=== PATIENT | female | born 1960 | race Caucasian/White ===

== ENCOUNTER → 2017-02-17 | Outpatient (CLI) | payer OTHER ==
[~2017-02-17] MED LIST: ANAS1TAB19 PO; ASPI81TA25 PO; CALC-393 PO; CETI10TA10 PO; CHOL20005 PO; CLON0.5T3 PO; CYCL10TA6 PO; GLUCTAB7 PO; LISI5TAB PO; MULT-506 PO; PHEN95TA14 PO; SERT-234 PO
--- NOTE | 2017-02-17 14:43 | MAMMOGRAPHY REPORT ---
BILATERAL DIGITAL DIAGNOSTIC MAMMOGRAM TOMOSYNTHESIS WITH CAD: 02/17/2017 CLINICAL HISTORY: History of left breast cancer status post lumpectomy March 2015 as well as radiation therapy. She reports no palpable lumps or other current complaints. TECHNIQUE: Breast tomosynthesis in addition to standard 2D mammography was performed. Current study was also evaluated with a Computer Aided Detection (CAD) system. Bilateral CC and MLO 2-D and tomosy nthesis images and spot magnification left CC and ML views were obtained. COMPARISON: Comparison is made to exams dated: 08/31/2016 ultrasound, 08/31/2016 mammogram, 6 ultrasound, 03/01/2016 mammogram, 08/26/2015 mammogram, and 03/28/2015 localization - [facility]. BREAST COMPOSITION: There are scattered areas of fibroglandular density in both breasts. FINDINGS: There has been no significant interval change compared to prior exams. There are no suspi cious masses, calcifications, or areas of nonsurgical architectural distortion noted within either br east. There are stable post surgical changes in the left 6:00 breast from prior lumpectomy, includin g stable architectural distortion and density at the lumpectomy bed. A linear scar marker denotes a scar on the left 6:00 breast. Spot magnification views of the lumpectomy bed demonstrate a few scatt ered benign-appearing calcifications at and lateral to the lumpectomy bed, which are stable compared to multiple prior exams including the January 2015 exam and considered benign given long-term stability. No suspicious or new clusters of microcalcifications are noted at the lumpectomy bed. Other scatter ed bilateral benign-appearing calcifications are not significantly changed. IMPRESSION: ACR BI-RADS CATEGORY 2: BENIGN Stable posttreatment changes in the left breast, without mammographic evidence of malignancy in eithe r breast.. A 1 year screening mammogram is recommended. The patient has been verbally notified of th e results. Approximately 10% of breast cancers are not detected with mammography. A negative mammographic report should not delay biopsy if a clinically suggestive mass is present. Preeti Junior M.D. /:02/17/2017 09:54:44 Wharf Laborer: Adrianne ESPAÑA(R)(M), [facility] letter sent: Normal 1/2 BI-RADS Code: ACR BI-RADS Category 2: Benign
== END | disposition home or self-care (01) ==
LOC: C.MAMM 09:15
PROVIDERS: ATTEND Physician Assistant Medical
DX: Z08 Encounter for follow-up examination after completed treatment for malignant neoplasm (principal); Z85.3 Personal history of malignant neoplasm of breast

== ENCOUNTER → 2017-06-29 | Outpatient (CLI) | payer OTHER ==
[2017-06-29 13:14] VITALS: BP 123/79; PULSE 92; TEMP 37.1; O2SAT 97
--- NOTE | 2017-06-29 14:13 | Radiation Oncology Follow-Up ---
Radiation Oncology Follow-Up Date of Visit Jun 29, 2017. Reason For Visit Annual follow up Radiation Completion Date APBI 05/27/15 Diagnosis (1) Breast cancer in situ Status: Resolved Onset Date: 02/24/2015 Stage: 0 Permanent Comment: Left breast, DCIS, grade 3 with comedonecrosis, ER/SD positive, stage 0 Biopsy - 02/24/2015 Lumpectomy - 03/28/2015 Radiation therapy - completed 05/27/2015 - received 3,850 cGy utilizing accelerated partial breast therapy. Last Edited By: Ethan Guerrero on Jun 17, 2015 08:07 History of Present Illness Ms. Wilkes presented with an abnormal mammogram on 01/09/2015 which revealed scattered coarse calcifications in a new cluster of microcalcifications in the middle one third of the left breast at the 12 o'clock position. The patient and subsequently underwent a diagnostic left mammogram on 01/28/2015 which revealed a discrete 2 mm cluster of microcalcifications in the right middle one third of the left breast and a biopsy was recommended. Biopsy was completed on 02/24/2015 revealed ductal carcinoma in situ which was high-grade with comedonecrosis and was estrogen receptor and progesterone receptor positive. The patient was evaluated by Dr. Mcgovern in the discussed a lumpectomy followed by adjuvant radiation therapy. The patient underwent a lumpectomy on 03/28/2015 which only revealed fibrocystic changes in no area of residual carcinoma in situ. We are now seeing her in consultation for discussion of adjuvant radiation therapy. Currently the patient is doing well overall. She has no complaints. She states she has healed up well from surgery. She did let us know that she does plan to go on a trip in July and is hoping that will be possible even if she takes radiation therapy. She returned and completed CT simulation. She was found to be a candidate for accelerated partial breast treatment. Interim History She's been doing well over this past year. She is noted no changes to her breast. She's noticed no masses or tenderness and no change in the axilla. She 's had no swelling of her arm. She is up-to-date on mammography. She is on Arimidex. She has mild hot flashes in the morning. He is then resolved and are not an issue throughout the rest of the day. Allergies Coded Allergies: Cat Dander (Verified Allergy, Unknown, ITCGY NOSE RUNNY EYES, 05/18/15) POLLEN (Verified Allergy, Unknown, ITCHY EYES RUNNY NOSE, 05/18/15) Home Medications Scheduled Anastrozole (Arimidex), 1 TAB PO DAILY Aspirin (Aspir-Low), 1 TAB PO QAM Calcium Carbonate (Calcium), 600 MG PO QAM Cetirizine Hcl (Zyrtec), 10 MG PO QAM Cholecalciferol (Vitamin D3), 2,000 UNITS PO QAM Tpichdbeqll-Mgvbbolpoho-Rhw C- (Glucosamine Chondroitin), 1 TAB PO QAM Lisinopril (Prinivil), 5 MG PO QAM Multivitamin (Multivitamin), 1 TAB PO QAM Sertraline (Zoloft), 150 MG PO QPM Scheduled PRN Clonazepam (Klonopin), 0.5-1 TAB PO BID PRN for PRN Cyclobenzaprine Hcl (Flexeril), 10 MG PO HS PRN for PRN Phenazopyridine Hcl (Azo Tabs), 1-2 TABS PO Q6 PRN for URINARY PAIN Review of Systems Gastrointestinal: Symptoms: WNL Oral: Symptoms: No Problems Respiratory: Symptoms: WNL Urinary: Symptoms: WNL Skin: Symptoms: No Problems Breast: Right Upper Arm Measurement: 38.0 Right Mid Arm Measurement: 27.3 Right Wrist Measurement: 17.3 Left Upper Arm Measurement: 37.8 Left Mid Arm Measurement: 27.3 Left Wrist Measurement: 17.0 Arm Dominence: Right Physical Exam Vital Signs Date Time Temp Pulse Resp B/P (MAP) Pulse Ox O2 Delivery O2 Flow Rate FiO2 06/29/17 13:14 37.1 92 12 123/79 97 Fatigue: None General Appearance: no apparent distress Eyes: normal inspection, EOMI ENT: normal ENT inspection, hearing grossly normal Neck: no adenopathy, thyroid normal Respiratory/Chest: lungs clear, no respiratory distress, no accessory muscle use Breast: Breast examination reveals a well-healed incision of the left breast. There are no masses or tenderness no axillary adenopathy. There are mild fibrous changes below the incision line. Using the [place] score cosmesis she has a good outcome. She has no skin retractions or nipple changes. The right breast showed no masses or tenderness no axillary adenopathy. Cardiovascular: regular rate, rhythm, no gallop, no murmur Extremities: no pedal edema Neurologic/Psychiatric: no motor/sensory deficits, alert, normal mood/affect Skin: warm/dry Additional Studies Patient: TERELL WILKES Rec: [id number] Address[address]: [address] [facility] Address2: Acct ID: [id number] Date: 1960 Sex: F Ref Phy: Pedor Guerrero M.D. Att Phy: Yary Goncalves PA-C Kaela Phy: Raheel Rey M.D. Inter Phy: Preeti Junior MD [facility]: [place] [id number] SC: [id number] Report #: [id number] Second Mate: HANSEL Diagnosis: 6 MO F/U Service Date: 02/17/17 MNE: [id number] Ordering Dr: Yary Goncalves PA-C CC: Yary Goncalves PA-C CONF: DICTATED BY: Preeti Junior MD MAMMOGRAPHY REPORT BILATERAL DIGITAL DIAGNOSTIC MAMMOGRAM TOMOSYNTHESIS WITH CAD: 02/17/2017 CLINICAL HISTORY: History of left breast cancer status post lumpectomy March 2015 as well as radiation therapy. She reports no palpable lumps or other current complaints. TECHNIQUE: Breast tomosynthesis in addition to standard 2D mammography was performed. Current study was also evaluated with a Computer Aided Detection (CAD ) system. Bilateral CC and MLO 2-D and tomosynthesis images and spot magnification left CC and ML views were obtained. COMPARISON: Comparison is made to exams dated: 08/31/2016 ultrasound, 2015 mammogram, 03/01/2016 ultrasound, 03/01/2016 mammogram, 08/26/2015 mammogram , and 03/28/2015 [facility]. BREAST COMPOSITION: There are scattered areas of fibroglandular density in both breasts. FINDINGS: There has been no significant interval change compared to prior exams. There are no suspicious masses, calcifications, or areas of nonsurgical architectural distortion noted within either breast. There are stable post surgical changes in the left 6:00 breast from prior lumpectomy, including stable architectural distortion and density at the lumpectomy bed. A linear scar marker denotes a scar on the left 6:00 breast. Spot magnification views of the lumpectomy bed demonstrate a few scattered benign-appearing calcifications at and lateral to the lumpectomy bed, which are stable compared to multiple prior exams including the January 2015 exam and considered benign given long-term stability. No suspicious or new clusters of microcalcifications are noted at the lumpectomy bed. Other scattered bilateral benign-appearing calcifications are not significantly changed. IMPRESSION: ACR BI-RADS CATEGORY 2: BENIGN Stable posttreatment changes in the left breast, without mammographic evidence of malignancy in either breast.. A 1 year screening mammogram is recommended. The patient has been verbally notified of the results. Approximately 10% of breast cancers are not detected with mammography. A negative mammographic report should not delay biopsy if a clinically suggestive mass is present. Preeti Junior M.D. ah/:02/17/2017 09:54:44 Mold Mover: Adrianne SMITH)(Ramón), [facility] letter sent: Normal 1/2 BI-RADS Code: ACR BI-RADS Category 2: Benign Dictated by: Preeti Junior MD Signed by: Preeti Junior MD Assessment & Plan Plan: She was seen and examined by Dr. Guerrero. Continue annual mammography. Continue on Arimidex. She continues follow-up with her breast surgeon and medical oncologist. We asked her to return to our office in 1 year. She may cause she has any questions or concerns in the interim. Assessment & Plan (Attending) ADDENDUM: I agree with note created by Yary Goncalves PA-C. I reviewed the patient's chart and information with her. I have examined and evaluated the patient. I reviewed relevant clinical information and answered the patient's and /or family's questions. WATER PLANT PUMP OPERATOR Total Time In Follow-Up I spent 20 minutes speaking to the patient performing examination. I spent 15 minutes reviewing information and completing this note. Total Time (Attending) In Follow-Up I spent 15 minutes examining and counseling the patient. WATER PLANT PUMP OPERATOR Copy To Cesia Mcgovern MD; Pedro Guerrero M.D.; Raheel Rey M.D. Problem Qualifiers (1) Breast cancer in situ: Carcinoma in situ of breast type: intraductal Laterality: left Qualified Codes: D05.12 - Intraductal carcinoma in situ of left breast
== END | disposition home or self-care (01) ==
LOC: C.ONC 13:07
PROVIDERS: ATTEND Physician Assistant Medical
DX: Z08 Encounter for follow-up examination after completed treatment for malignant neoplasm (principal); Z92.3 Personal history of irradiation; Z85.3 Personal history of malignant neoplasm of breast

== ENCOUNTER → 2017-08-12 | Outpatient (CLI) | payer OTHER | END | disposition home or self-care (01) | LOC: C.PAPS 17:43 | PROVIDERS: ATTEND Obstetrics & Gynecology | DX: Z12.4 Encounter for screening for malignant neoplasm of cervix (principal) ==

== ENCOUNTER 2017-08-22 17:45 | Emergency (ER) | payer OTHER ==
[~2017-08-22] VITALS: Ht 165.1 cm; Wt 100.0 kg
[2017-08-22 17:47] VITALS: TEMP 37; Ht 165.1 cm; Wt 100.0 kg
[2017-08-22] MEDS ORDERED: AMOX500C3 PO (18:22)
--- NOTE | 2017-08-22 18:44 | EMERGENCY ROOM VISIT NOTE ---
ED Visit Note First contact with patient: 17:54 CHIEF COMPLAINT: left knee pain HISTORY OF PRESENT ILLNESS: This 56-year-old female patient presents to the emergency department in a wheelchair, approximately 6 hours after sustaining an injury to the left knee. The patient states she was carrying groceries upstairs when she got home, and when she got to the top of the stairs, her left knee gave way. She states "it flew backwards". When asked to specify, the patient states she is uncertain if the knee hyperextended or buckled. She states she just knows that the knee did not support her weight for a moment, then became painful. She does have a history of osteoarthritis in bilateral knees, but states this never happened before. When she got inside, she immediately applied ice, elevated the leg, and took 600 mg of ibuprofen. She states she is able to walk, however that significantly worsens her pain. By 4: 00, she states she was unable to bear weight on the leg due to the severe pain. She was able to ambulate around while leaning on her 's crutch, but this is difficult. The patient denies any other injuries besides their knee. The patient denies swelling or bruising. There is pain in the distal femur, medial, and lateral aspects of the knee. They rate the pain as sharp and 7/10. No numbness or tingling. No previous injuries to this knee. No ankle, foot or hip pain. REVIEW OF SYSTEMS: A 6 system review of systems was completed with positives and pertinent negatives listed in the HPI. ALLERGIES: None MEDICATIONS: Zoloft, lisinopril, Arimidex, meloxicam PMH: Ductal carcinoma, hypertension SOCIAL HISTORY: The patient lives locally with family. She denies drug, alcohol , tobacco use. PHYSICAL EXAM: Vital Signs: Reviewed Nurse's notes, vital signs stable. GENERAL: This is a 56-year-old white female, no acute distress, but appears in pain, well-developed, well-nourished. MENTAL STATUS: Alert, oriented to person place and time, and cooperative. LUNGS: CTA bilaterally. No wheezes, rhonchi, or rales. No dullness to percussion. MUSCULOSKELETAL: The left knee is mildly swollen. There is no ecchymosis. There is no joint effusion present. The patient is tender superior to the patella, and in the medial and lateral aspects of the knee. There is no joint line tenderness. The patella does appropriately subluxate. Range of motion is full, and nontender. Strength of the quads and hamstrings is 5/5. Roberto's is negative. Homero's and Anterior Drawer tests are negative. There is discomfort , but no laxity with varus and valgus stressing. The foot and toes are warm and well-perfused. Dorsalis pedis pulse 2+. Sensation to pain and light touch is intact. Capillary refill less than 2 seconds. RADIOLOGY: L KNEE 3 VIEWS CLINICAL HISTORY: Left knee pain following injury. COMPARISON: None FINDINGS: Alignment of the left knee is anatomic. No fracture or suspicious lesion is evident. There is a small left knee joint effusion. There is moderate narrowing of the medial patellofemoral compartment. Moderate osteophytosis is noted. There is mild osteophytosis within the medial and lateral compartments. IMPRESSION: 1. No acute fracture. 2. Small left knee joint effusion. 3. Moderate osteoarthritis of the patellofemoral compartment with mild osteoarthritis within the medial and lateral compartments. Electronically signed by: Shorty Sanz M.D. 08/22/2017 6:48 PM Dictated Date/Time: 08/22/2017 6:46 PM EMERGENCY DEPARTMENT COURSE: I examined the patient. X-rays of the left knee were reviewed by myself and read by radiology and reveal no acute fracture. The patient was placed in a knee immobilizer under my direction and the position was satisfactory. The patient was instructed on the use of crutches. While reviewing discharge instructions, the patient states she has been feeling ill and is currently being treated for a URI with Amoxicillin. She states she was seen at urgent care for the prescription and called back today to ask for Gloria Quiroz, but was advised to just "give it time." The patient asked if I would be willing to send a prescription for her. I did listen to the patient's lungs and did not head any adventitious lung sounds. A script was sent. The patient was discharged home in good condition. I attest that I have personally reviewed the patient's current medication list. Blood Pressure Screening: Patient was found to have a slightly elevated blood pressure due to circumstances. I do not believe that the patient requires hypertension monitoring. DIFFERENTIAL DIAGNOSIS: Sprain, strain, contusion, ligament tear, meniscus tear , fracture, dislocation, malignancy, and others DIAGNOSIS: Left knee sprain, cough Problem List Medical Problems: (1) Breast cancer in situ Permanent Comment: Left breast, DCIS, grade 3 with comedonecrosis, ER/RI positive, stage 0 Biopsy - 02/24/2015 Lumpectomy - 03/28/2015 Radiation therapy - completed 05/27/2015 - received 3,850 cGy utilizing accelerated partial breast therapy. Status: Resolved Current/Historical Medications Scheduled Amoxicillin (Amoxil), 1 CAP PO BID Anastrozole (Arimidex), 1 TAB PO DAILY Aspirin (Aspir-Low), 1 TAB PO QAM Calcium Carbonate (Calcium), 600 MG PO QAM Cetirizine Hcl (Zyrtec), 10 MG PO QAM Cholecalciferol (Vitamin D3), 2,000 UNITS PO QAM Oewacpxvnpp-Jxhsvamciak-Jlm C- (Glucosamine Chondroitin), 1 TAB PO QAM Lisinopril (Prinivil), 5 MG PO PM Multivitamin (Multivitamin), 1 TAB PO QAM Sertraline (Zoloft), 150 MG PO QPM Scheduled PRN Benzonatate (Tessalon Perles), 200 MG PO TID PRN for Cough Clonazepam (Klonopin), 0.5-1 TAB PO BID PRN for PRN Cyclobenzaprine Hcl (Flexeril), 10 MG PO HS PRN for PRN Allergies Coded Allergies: Cat Dander (Verified Allergy, Unknown, ITCGY NOSE RUNNY EYES, 08/22/17) POLLEN (Verified Allergy, Unknown, ITCHY EYES RUNNY NOSE, 08/22/17) Vital Signs Date Time Temp Pulse Resp B/P (MAP) Pulse Ox O2 Delivery O2 Flow Rate FiO2 08/22/17 17:47 37.0 72 17 162/97 97 Room Air Departure Information Impression Primary Impression: Sprain of left knee Additional Impression: Cough Dispostion Home / Self-Care Condition GOOD Prescriptions Benzonatate (Tessalon Perles) 200 Mg Cap 200 MG PO TID Y for Cough, #30 CAP Prov: Sonja Rangel, LORENZO 08/22/17 Referrals Raheel Rey M.D. (PCP) Varghese Leavitt D.O. Patient Instructions ED Immobilizer Knee, My [facility] Additional Instructions You have been treated in the Emergency Department for Knee Pain and cough. You were given a prescription for Tessalon Perles. Use as directed for cough. For pain control, you can use the following lqnk-fba-ukzlbfu medicines (if >12 yo): Ibuprofen(Motrin, Advil) may be used for fever or pain. Use 600mg every six hours as needed. Take with food. Avoid using more than 2400mg in a 24 hour period. Do not use 2400mg per day for more than three consecutive days without physician direction. Prolonged inappropriate use can lead to stomach upset or ulcers. (AND/OR) Acetaminophen(Tylenol) may be used for fever or pain. Use 1000mg every six hours as needed. Avoid using more than 3000mg in a 24 hour period. If this is a recent injury (<24 hrs), ice can be applied to the area of pain for the first 3 days to help decrease pain and inflammation. Ice massages can be performed by freezing water in a paper cup, peeling back the cup to expose the ice and then massaging over the affected area. Contact your orthopedic surgeon if no improvement in 2-3 days. Wear the knee immobilizer when ambulating and out of bed until you are feeling better or are instructed by orthopedics not to use it. Use the crutches you have been provided to keep ALL weight off of the knee until weight bearing is tolerable. Return to the Emergency Department if your current symptoms worsen despite treatment course outlined above. Problem Qualifiers Primary Impression: Sprain of left knee Encounter type: initial encounter Involved ligament of knee: unspecified ligament Qualified Codes: S83.92XA - Sprain of unspecified site of left knee, initial encounter
--- NOTE | 2017-08-22 18:49 | DIAGNOSTIC IMAGING REPORT ---
L KNEE 3 VIEWS CLINICAL HISTORY: Left knee pain following injury. COMPARISON: None FINDINGS: Alignment of the left knee is anatomic. No fracture or suspicious lesion is evident. There is a small left knee joint effusion. There is moderate narrowing of the medial patellofemoral compartment. Moderate osteophytosis is noted. There is mild osteophytosis within the medial and lateral compartments. IMPRESSION: 1. No acute fracture. 2. Small left knee joint effusion. 3. Moderate osteoarthritis of the patellofemoral compartment with mild osteoarthritis within the medial and lateral compartments. Electronically signed by: Shorty Sanz M.D. 08/22/2017 6:48 PM Dictated Date/Time: 08/22/2017 6:46 PM
[2017-08-22] MEDS ORDERED: BENZ1CAP90 PO (19:03)
[2017-08-22 19:21] VITALS: BP 124/76; PULSE 88; O2SAT 98
== END 2017-08-22 19:22 | disposition home or self-care (01) ==
LOC: C.EDB 17:46 → C.EDD 19:22
DX: S83.92XA Sprain of unspecified site of left knee, initial encounter (principal); X58.XXXA Exposure to other specified factors, initial encounter; Y92.019 Unspecified place in single-family (private) house as the place of occurrence of the external cause; M25.462 Effusion, left knee; I10 Essential (primary) hypertension; Z85.3 Personal history of malignant neoplasm of breast; Z79.82 Long term (current) use of aspirin; Z79.899 Other long term (current) drug therapy; Z91.09 Other allergy status, other than to drugs and biological substances

== ENCOUNTER 2018-12-05 06:15 | Inpatient (IN) ==
--- NOTE | 2018-11-15 16:34 | PAT Medication Instructions ---
Medication Instructions Date of Service November 15, 2018 Home Medications Vitamin D 1 tab PO DAILY anastrozole 1 mg PO DAILY aspirin [Aspir-Low] 81 mg PO DAILY calcium carbonate [Calcium 600] 600 mg PO DAILY cetirizine [Zyrtec] 10 mg PO DAILY clonazepam 0.5 mg PO BID PRN cyclobenzaprine 10 mg PO TID PRN diclofenac sodium 75 mg PO BID glucosamine HCl 1,500 mg PO DAILY lisinopril 5 mg PO DAILY multivitamin 1 tab PO DAILY ranitidine HCl [Zantac] 150 mg PO DAILY PRN sertraline 100 mg PO DAILY vitamin E 400 unit PO DAILY ASK your surgeon for instructions diclofenac sodium 75 mg PO BID ASK your prescriber and surgeon anastrozole 1 mg PO DAILY STOP taking 2 weeks before surgery (or as soon as possible if surgery is within 2 weeks) glucosamine HCl 1,500 mg PO DAILY vitamin E 400 unit PO DAILY DO NOT take the morning of surgery Vitamin D 1 tab PO DAILY calcium carbonate [Calcium 600] 600 mg PO DAILY cetirizine [Zyrtec] 10 mg PO DAILY cyclobenzaprine 10 mg PO TID PRN lisinopril 5 mg PO DAILY multivitamin 1 tab PO DAILY ranitidine HCl [Zantac] 150 mg PO DAILY PRN Take morning of surgery With a small sip of water, OTHERWISE NOTHING TO EAT OR DRINK AFTER MIDNIGHT: aspirin [Aspir-Low] 81 mg PO DAILY clonazepam 0.5 mg PO BID PRN (if needed) sertraline 100 mg PO DAILY Other Notes If you have any questions please call us at [phone] or [phone] or [phone] or [phone]
--- NOTE | 2018-11-16 14:30 | Anesthesiology Consultation ---
Date of Service November 16, 2018 Assessment & Plan (1) Encounter for pre-operative examination: - Okay to continue ASA perioperatively per surgeon Chart Review Chart Review: Acceptable Risk for Surgery and Patient seen in Pre Admission Testing Teaching & Discussion Pre-Anesthesia Teaching/Discussion Notes: Instructed NPO after midnight before surgery,except medications with 15 cc of water. Medication instructions provided according to the PAT guidelines. History Surgery Operation Date: 12/05/18 10:40 Proposed Procedures p Right Total Knee Arthroplasty - Tavo Perales MD Height/Weight Height: 5 ft 5 in Weight: 99.5 kg Allergies Allergy/AdvReac Type Severity Reaction Status Date / Time cat dander Allergy Mild ITCHY NOSE Verified 11/10/18 13:31 RUNNY EYES pollen extracts Allergy Mild ITCHY EYES Verified 11/10/18 13:31 RUNNY NOSE No Known Drug Allergies Allergy Unknown Verified 11/16/18 14:47 Medications Home Medications Medication Instructions Recorded Confirmed Last Taken Vitamin D 1 tab PO DAILY 11/10/18 11/10/18 Unknown anastrozole 1 mg PO DAILY 11/10/18 11/10/18 Unknown aspirin [Aspir-Low] 81 mg PO DAILY 11/10/18 11/10/18 Unknown calcium carbonate [Calcium 600] 600 mg PO DAILY 11/10/18 11/10/18 Unknown cetirizine [Zyrtec] 10 mg PO DAILY 11/10/18 11/10/18 Unknown clonazepam 0.5 mg PO BID PRN 11/10/18 11/10/18 Unknown cyclobenzaprine 10 mg PO TID PRN 11/10/18 11/10/18 Unknown diclofenac sodium 75 mg PO BID 11/10/18 11/10/18 Unknown glucosamine HCl 1,500 mg PO DAILY 11/10/18 11/10/18 Unknown lisinopril 5 mg PO DAILY 11/10/18 11/10/18 Unknown multivitamin 1 tab PO DAILY 11/10/18 11/10/18 Unknown ranitidine HCl [Zantac] 150 mg PO DAILY PRN 11/10/18 11/10/18 Unknown sertraline 100 mg PO DAILY 11/10/18 11/10/18 Unknown vitamin E 400 unit PO DAILY 11/10/18 11/10/18 Unknown Past Medical History Medical History Anxiety Cancer BREAST S/P LEFT BREAST LUMPECTOMY/RADIATION Depression GERD (gastroesophageal reflux disease) CONTROLLED Hypertension Obesity Osteoarthritis Past Family History Family History Grandfather (Maternal) Family hx of colon cancer Past Surgical History Surgical History History of bilateral tubal ligation History of colonoscopy History of tooth extraction Hx of lumpectomy LEFT BREAST Past Anesthesia History No Hx of Anesthesia Complications (EXCEPT PONV) and No Family Hx of Anesthesia Complications History of PONV Yes Motion Sickness Screening History of Motion Sickness: Yes (OCCASIONAL) Social History Smoking Status: Never smoker Do You Dip or Chew Tobacco: No Hx Alcohol Use: Yes Alcohol type: wine and hard liquor alcohol intake frequency: holidays/special occasions only Hx Substance Use: No substance use type: does not use Exercise / Class Metabolic Activity II 4-5 Yardwork/Stairs/Walk up hill Review of Systems Patient denies chest pain, shortness of breath, dyspnea on exertion, cough, wheezing, palpitations. Physical Exam Vital Signs VITALS BP 143/80 P 81 TEMP 98.3 SP02 97%ra RESP 18 PHYSICAL Full neck and c-spine range of motion. Full TMJ range of motion. TMD 3 finger breaths Mallampati Score 2 Dentition: intact, crowns on molars Lungs: clear throughout to auscultation Cardiac: regular rate and rhythm, no murmurs noted Spine: kyphosis Carotid arteries: negative bruit Extremities: no edema Testing Electrocardiogram Date: 11/16/18 Findings: + NSR @ (70) Chest X-Ray Date: 11/16/18 Findings: + NAD Laboratory Results 11/16/18 14:51 11/16/18 14:51 Blood Type A Positive 11/16/18 14:51 Antibody Screen NEGATIVE 11/16/18 14:51 PT 10.1 Seconds (9.0-12.0) 11/16/18 14:51 INR 1.0 (0.9-1.1) 11/16/18 14:51 APTT 24.5 Seconds (21.0-31.0) 11/16/18 14:51
--- NOTE | 2018-11-16 15:06 | XRay Report ---
XR chest Pre-admission PA/Lat HISTORY: Preop. COMPARISON: None. FINDINGS: The lungs are clear. Cardiac silhouette is normal in size. No pleural effusions. No pneumot horax. IMPRESSION: No acute process. Electronically signed by: Ayan Min M.D. 11/16/2018 3:05 PM
[2018-11-16 15:58] LABS: Basophils # (auto) 0.01 K/uL (0-0.2); Basophils % (auto) 0.2 %; Eosinophils # (auto) 0.12 K/uL (0-0.5); Hematocrit (blood only) 41.8 % (37-47); Hemoglobin 14.1 g/dL (12.0-16.0); Immature Granulocytes # (auto) 0.01 K/uL (0.00-0.02); Immature Granulocytes % (auto) 0.2 %; Lymphocytes # (auto) 2.32 K/uL (1.2-3.4); Lymphocytes % (auto) 37.7 %; Mean Corpuscular Hgb Conc 33.7 g/dL (32-36); Mean Corpuscular Volume 92.3 fL (80-100); Mean Platelet Volume 9.1 fL (7.4-10.4); Monocytes # (auto) 0.53 K/uL (0.11-0.59); Monocytes % (auto) 8.6 %; Neutrophils # (auto) 3.16 K/uL (1.4-6.5); Neutrophils % (auto) 51.3 %; Platelet Count 196 K/uL (130-400); RDW Coefficient of Variation 12.4 % (11.5-14.5); RDW Standard Deviation 42.2 fL (36.4-46.3); Red Blood Count 4.53 M/uL (4.2-5.4); White Blood Count 6.15 K/uL (4.8-10.8)
[2018-11-16 16:11] LABS: BUN Creatinine Ratio 23.1 (10-20); Calcium 9.3 mg/dl (8.5-10.1); Creatinine Clr Calc Pharmacy 86.3 ml/min; Est GFR (African American) 90.1; Est GFR (Non-African American) 77.7
[2018-11-16 16:12] LABS: Partial Thromboplastin Ratio 0.9; Partial Thromboplastin Time 24.5 Seconds (21.0-31.0); Prothrombin Time 10.1 Seconds (9.0-12.0)
--- NOTE | 2018-11-29 12:53 | History and Physical Report ---
DATE OF ADMISSION: 12/05/2018 CHIEF COMPLAINT: Bilateral knee pain and discomfort, right side greater than left. 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 She is referred by my partner Dr. Leavitt. She has a long history of bilateral knee pain and discomfort, right side is worse than the left. She has been through extensive conservative treatment over the years, which has just become less successful over time. 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 She was asked to take some NSAIDs, and without those, she really cannot perform her job. She barely gets through. She has diffuse pain. She has nighttime pain. It is global pain in both knees. The more she walks, the more it hurts. She now would like to proceed with definitive treatment. She is hoping to do this in a staged fashion. PAST MEDICAL HISTORY: 1. Hypertension. 2. Anxiety/depression. 3. Arthritis. 4. Gastroesophageal reflux disease. 5. Obesity with a BMI of 37. PAST SURGICAL HISTORY: Previous surgeries include: 1. Tubal ligation. 2. Lumpectomy. ALLERGIES: None. CURRENT MEDICINES: 1. Lisinopril 5 mg a day. 2. Anastrozole 1 mg a day. 3. Diclofenac. 4. Sertraline 100 mg a day. 5. Clonazepam 0.5 mg. 6. Cyclobenzaprine 10 mg p.r.n. SOCIAL HISTORY: A 58-year-old white female. She works as a nurse in the [employer]. She is . Does not smoke. Social alcohol use. FAMILY HISTORY: Noncontributory. REVIEW OF HISTORY: Negative for diabetes, neurologic problems, vascular problems or bleeding disorders. No chest pain or shortness of breath. No evidence of DVT or PE. No known bleeding problems. PHYSICAL EXAMINATION: GENERAL: Reveals a healthy, pleasant 58-year-old white female. HEENT: Benign. NECK: Supple, no lymphadenopathy. LUNGS: Clear to auscultation. HEART: Regular rate and rhythm. ABDOMEN: Soft, nontender, nondistended. EXTREMITIES: Grossly neurovascularly intact except as follows: Examination of both knees reveals patient walks with bit of waddling gait. She has got a varus deformity to both knees. Examination of the right knee reveals tenderness over the medial joint line. Varus deformity. Small knee effusion. Range of motion is 5 degrees short of full extension, about 115 degrees of flexion. Fairly stiff in flexion. No pain with hip motion. She is neurologically intact. Examination of the left knee reveals varus deformity. Small knee effusion. She is tender over the medial joint line. Range of motion 5-120. No instability. X-RAYS: X-rays of both knees were reviewed. Shows advanced bilateral knee DJD. The right side is a bit worse than the left. She has complete loss of joint space medially. She has got osteophytes over the medial femoral condyle and medial tibial plateau. This has progressed since her x-rays a year ago. 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 She has failed conservative treatment. She would like to consider a knee replacement. She would like to have the right one done and the left one done several months later if possible. PLAN: We will take her to the operating room and do right total knee replacement. The risks and benefits of this procedure were explained to the patient including but not limited to DVT, PE, , infection, neurological injury, vascular injury, bleeding problem, pain, limited range of motion, stiffness, failure to relieve symptoms, incomplete relief of symptoms, need for further surgery in future, fracture, leg length inequality, nerve palsy, persistent pain, and need for revision surgery. The patient understands and desires to proceed. Informed consent was obtained. We will schedule and do the other one in 2 months and will just have to see how she does. She knows to hold her lisinopril the morning of surgery. She is planning to be discharged to home using [facility] health program.
[~2018-12-05 06:15] MED LIST changes: +ACETAMINOPHEN 500 MG TAB PO SCH; -ANAS1TAB19 PO; -ASPI81TA25 PO; +BUPIVACAINE LIPOSOME/PF 266 MG, BUPIVACAINE/EPINEPHRINE 50 ML, SODIUM CHLORIDE 0.9% 30 ... INFIL SCH; -CALC-393 PO; +CEFAZOLIN 2000MG 2,000 MG/15 ML SYR IV SCH; -CETI10TA10 PO; -CHOL20005 PO; -CLON0.5T3 PO; -CYCL10TA6 PO; +FAMOTIDINE 20 MG TAB PO SCH; +GABAPENTIN 300 MG x 2 PO SCH; -GLUCTAB7 PO; -LISI5TAB PO; +LR 500ML BOLUS, THEN 15ML/HR IV SCH; +LR 60ML/HR IV SCH; +METOCLOPRAMIDE HCL 10 MG TABLET PO SCH; -MULT-506 PO; -PHEN95TA14 PO; +SCOPOLAMINE 1.5 MG TDSY TD SCH; -SERT-234 PO
[2018-12-05] MEDS ORDERED: BUPIVACAINE 0.5 % 5 MG/1 ML PF 10ML VIAL ONE (06:28)
[2018-12-05] MEDS ORDERED: ROPIVACAINE 0.5% 5 MG/ML 30 ML VIAL ONE (06:28)
[2018-12-05] MEDS ORDERED: TRANEXAMIC ACID 1,000 MG **IV Intra-op IV SCH (06:30)
[2018-12-05] MEDS ORDERED: MIDAZOLAM HCL 1 MG/ML 2ML VIAL ONE ×5 (06:36→12:51)
[2018-12-05] MEDS ORDERED: fentaNYL citrate 100 MCG/2 ML VIAL ONE ×2 (06:37→11:21)
--- NOTE | 2018-12-05 06:53 | History & Physical Bridge Note ---
Date of Service December 05, 2018 History & Physical Bridge Note I have examined the patient, reviewed the History & Physical and in the interval since the performance of the History & Physical I have noted the following changes of clinical significance: no changes noted
[2018-12-05] MEDS ORDERED: PROPOFOL IV EMULSION 10 MG/ML 20 ML VIAL IV ONE ×2 (08:49→12:13)
[2018-12-05] MEDS ORDERED: SODIUM CHLORIDE 0.9% PF 50 ML VIAL ONE (08:49)
[2018-12-05] MEDS ORDERED: ONDANSETRON INJ 2 MG/ML 2 ML VIAL ONE (08:49)
[2018-12-05] MEDS ORDERED: BUPIVACAINE LIPOSOME 1.3% 266 MG/20 ML VIAL ONE (08:49)
[2018-12-05] MEDS ORDERED: LIDOCAINE HCL 2% 2 ML VIAL/AMP(20MG/ML) INFIL ONE (08:49)
[2018-12-05] MEDS ORDERED: BACITRACIN INJ 50,000 UNIT VIAL ONE (08:50)
[2018-12-05] MEDS ORDERED: BUPIVACAINE 0.25% 30 ML VIAL ONE (08:50)
[2018-12-05] MEDS ORDERED: EPINEPHrine INJ 1 MG/ML AMP ONE (08:50)
[2018-12-05] MEDS ORDERED: ATROPINE SULFATE 0.1 MG/ML 10ML SYR IV PRN (09:18)
[2018-12-05] MEDS ORDERED: ePHEDrine sulfate 50 MG/ML AMP IV PRN (09:18)
--- NOTE | 2018-12-05 10:43 | Post Operative Brief Note ---
Immediate Post Op Note v1 Date of Surgery December 05, 2018 Pre & Post Diagnosis Operation Date: 12/05/18 08:50 Pre-Op Diagnosis: Right Knee Advanced Degenerative Joint Disease Post-Op Diagnosis: Right Knee Advanced Degenerative Joint Disease Procedure Operation Date: 12/05/18 08:50 Actual Procedures p Right Total Knee Arthroplasty(Right) - Tavo Perales MD Surgeon Tavo Perales MD Hand Rug Cleaner Char, PAC Estimated Blood Loss 50 Findings Consistent with Post-Op Diagnosis Fluids 900 cc Specimens Right Knee Drains Godinez Catheter (A 16 Citizen Of [place] godinez catheter was inserted by RANDEE Guadarrama, without difficulty, clear yellow urine obtained, output to be monitored by Anesthesia.) Anesthesia Type Spinal MAC Complications none Disposition Accompanied Patient To Recovery: No Disposition: Recovery Room
--- NOTE | 2018-12-05 11:48 | XRay Report ---
XR knee RT 2V routine CLINICAL HISTORY: Surgical Post Op COMPARISON: Knee radiographs November 16, 2018. FINDINGS: Alignment of the right knee arthroplasty is anatomic. There is no fracture or unexpected r adiopaque foreign body. Skin adia are present. IMPRESSION: Expected findings following total right knee arthroplasty. Electronically signed by: Shorty Sanz M.D. 12/05/2018 11:46 AM
--- NOTE | 2018-12-05 12:27 | Anesthesiology Progress Note ---
Date of Service December 05, 2018 Anesthesia Post Procedure Vital Signs Vital Signs: Temp Pulse Pulse Resp BP BP Pulse Ox 12/05/18 12:15 78 12 93 12/05/18 12:11 82 19 120/61 94 12/05/18 12:10 91 H 23 94 12/05/18 12:06 74 13 113/61 93 12/05/18 12:05 76 15 93 12/05/18 12:04 36.9 C 75 16 113/61 94 12/05/18 12:01 74 12 110/59 L 93 12/05/18 12:00 72 13 93 12/05/18 11:57 77 11 L 92 12/05/18 11:56 72 16 116/62 93 12/05/18 11:55 79 10 L 94 12/05/18 11:51 75 13 119/73 94 12/05/18 11:50 78 17 95 12/05/18 11:46 75 12 115/63 95 12/05/18 11:45 73 16 94 12/05/18 11:41 74 12 119/69 95 12/05/18 11:40 68 13 95 12/05/18 11:36 73 16 119/69 98 12/05/18 11:35 67 15 98 12/05/18 11:31 66 14 127/63 97 12/05/18 11:30 78 18 98 12/05/18 11:26 63 12 113/61 97 12/05/18 11:25 65 13 97 12/05/18 11:22 60 12 98 12/05/18 11:21 71 12 127/68 98 12/05/18 11:20 64 12 100 12/05/18 11:17 64 14 100 12/05/18 11:16 60 11 L 121/65 99 12/05/18 11:15 56 L 15 100 12/05/18 11:11 59 L 12 127/69 99 12/05/18 11:10 68 13 99 12/05/18 11:06 63 11 L 128/60 99 12/05/18 11:05 58 L 12 99 12/05/18 11:01 71 20 131/63 98 12/05/18 11:00 62 11 L 100 12/05/18 10:56 64 14 129/61 100 12/05/18 10:55 66 12 100 12/05/18 10:51 73 18 120/79 99 12/05/18 10:50 74 15 99 12/05/18 10:48 37.1 C 76 79 14 124/59 L 124/79 99 12/05/18 06:52 36.9 C 88 16 149/88 H 95 Notes Mental Status: alert / awake / arousable and participated in evaluation Patient Amnestic to Procedure: Yes Nausea / Vomiting: adequately controlled Pain: adequately controlled Airway Patency, RR, SpO2: stable & adequate BP & HR: stable & adequate Hydration State: stable & adequate Neuraxial Anesthesia: was administered and sensory block is resolving Anesthetic Complications: no major complications apparent
[2018-12-05] MEDS ORDERED: NALOXONE HCL 0.4 MG/1 ML VIAL/CARP IV PRN (12:38)
[2018-12-05] MEDS ORDERED: METOCLOPRAMIDE HCL INJ 5 MG/ML 2 ML VIAL IV PRN (12:38)
[2018-12-05] MEDS ORDERED: CYCLOBENZAPRINE HCL 10 MG TAB PO PRN (12:38)
[2018-12-05] MEDS ORDERED: clonazePAM 0.5 MG TAB PO PRN (12:38)
[2018-12-05] MEDS ORDERED: MAGNESIUM HYDROXIDE SUSP 30 ML UDC PO PRN (12:38)
[2018-12-05] MEDS ORDERED: ONDANSETRON INJ 2 MG/ML 2 ML VIAL IV PRN (12:38)
[2018-12-05] MEDS ORDERED: ALUMINUM/MAGNESIUM SUSP 30 ML UDC PO PRN (12:38)
[2018-12-05] MEDS ORDERED: BISACODYL 10 MG SUPP PR PRN (12:38)
--- NOTE | 2018-12-05 13:10 | Operative Report ---
DATE OF OPERATION: 12/05/2018 SURGEON: Tavo Perales MD HYPERTRICHOLOGIST: RANDEE Hutchins PREOPERATIVE DIAGNOSIS: Right knee degenerative joint disease. POSTOPERATIVE DIAGNOSIS: Right knee degenerative joint disease. PROCEDURE PERFORMED: Right cemented posterior stabilized total knee arthroplasty. COMPLICATIONS: None. ESTIMATED BLOOD LOSS: 50 mL. FLUID REPLACEMENT: 900 mL crystalloid fluid replacement. TOURNIQUET TIME: 52 minutes at 300 mmHg. ANESTHESIA: Spinal with adductor canal block. DRAINS: None. SPECIMENS: Right knee sent for pathology. 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 She has been through extensive conservative treatment over the years. Over the past year, this became much less successful. Her symptoms progressed significantly to the point where she was having trouble doing her job. X-ray showed advanced bilateral knee DJD. She elected to proceed with right total knee arthroplasty. OPERATIVE FINDINGS: Operative findings revealed advanced right knee DJD. She had extensive grade 4 changes of the medial femoral condyle and medial tibial plateau. She did have some spotty grade 4 changes of the lateral compartment and a more advanced diffuse grade 4 changes of the patella and some spotty changes of the trochlea. Moderate size joint effusion. She had a fixed varus deformity to her knee. OPERATIVE IMPLANTS: Operative implants consists of: 1. A Biomet Vanguard size 62.5 right posterior stabilized femoral component. 2. A Biomet size 67 tibial tray. 3. A 12 mm posterior stabilized polyethylene insert. 4. A 28 x 8 all poly patella. OPERATIVE PROCEDURE: The patient was taken to the operating room, identified and placed on the operative table in supine position. All contact areas were appropriately padded. IV antibiotics provided by anesthesia team. A spinal anesthetic and adductor canal block had been provided in the holding area. Salazar catheter was placed in sterile fashion. Right thigh tourniquet was then placed and the right lower extremity was then prepped and draped in usual sterile fashion. The right leg was elevated and exsanguinated with Esmarch and tourniquet placed at 300 mmHg. An anterior approach of the right knee was then performed through a longitudinal incision centered over the patella. Sharp dissection was carried through subcutaneous tissue down to the level of the extensor mechanism. A medial parapatellar arthrotomy incision was made. Some subperiosteal dissection was carried out medially. The fat pad resected from beneath the patellar tendon. The lateral patellofemoral ligament was released. The patella was everted and knee was flexed. The osteophytes were taken off the distal femur. The ACL and PCL were then released from the distal femur. The tibia subluxated anteriorly. The external tibial alignment jig was then placed in the anterior face of the tibia and adjusted 14 mm medially. Proximal tibial cut was made to remove about 2 mm of bone from most deficient aspect of the medial tibial plateau. Tibia sized to a size 67. Attention was then drawn to the femur. The distal femur was entered with a sharp drill. Intramedullary canal was suctioned. A right 5-degree valgus cutting guide was placed. Distal femoral cutting block was pinned in place. Distal femoral cut was made to take an additional 3 mm of bone off the distal femur. Femur was then sized to a size 62.5. We did downsize this slightly. The AP cutting block was pinned parallel to the epicondylar axis, which was 4 degrees of external rotation. The anterior cut, anterior chamfer, posterior cut, posterior chamfer cuts were made. Box cutting guide was placed and adjusted slightly lateral and the box cut was made. The knee was flexed. The remnants of the medial and lateral menisci were excised. The osteophytes were taken off the posterior aspect of the femur. A trial femoral component was placed. Tibial tray was pinned in maximum external rotation and drill and stem punch were used to create defect in proximal tibia for the tibial tray. The knee was then trialed and the 12 mm insert fit most appropriately. Attention was then drawn to the patella. The patella was cleaned of all soft tissues. Patella thickness measured about 18 mm in thickness, it was cut down to 12. It was sized to a size 28 patella. Lug holes were drilled for the 28 patella. The lateral osteophyte was removed. Patella button was placed. Knee was taken through range of motion and patella tracked nicely with no thumbs test. Attention was then drawn toward placement of the permanent components. All trial components were removed. Bone plug was placed in the distal femur to limit blood loss. A double batch of Palacos G cement was mixed. A Biomet Vanguard size 62.5 right posterior stabilized femoral component, size 67 tibial tray, a 12 mm posterior stabilized polyethylene insert, and a 28 x 8 all poly patella then cemented in place. Knee was brought down into full extension until cement hardened. A final cement check was then performed. Pericapsular tissues were injected with a total of 100 mL of a combination of 20 mL of Exparel, 30 mL of normal saline, 50 mL of 0.25% Marcaine with epinephrine. The patient did receive 1 gram of tranexamic acid. The tourniquet was then let down for a tourniquet time of 52 minutes. Hemostasis was assured with use of electrocautery. The extensor mechanism was then closed with a combination of #1 PDS suture and #1 Vicryl suture in [id number] fashion. Extensor mechanism was checked and found to be intact. The subcutaneous tissue was then closed with #2 Dexon suture in a buried interrupted fashion. Skin was closed with skin adia. Leg was then cleaned and dried and a sterile dressing of Xeroform, 4 x 4's, sterile cast and Jacky bandage were applied. The patient then transferred to the recovery room in stable condition. The patient tolerated the procedure well with no complications. All needle and sponge counts were correct at the end of the operation. I attest to the content of the Intraoperative Record and any orders documented therein. Any exception s are noted below.
--- NOTE | 2018-12-05 13:51 | Progress Note ---
DATE: 12/05/2018 SUBJECTIVE: A 58-year-old female postop from a right knee replacement. She is doing well. Just starting to get the feeling and sensation back in her leg. Denies any chest pain or shortness of breath. Not feeling dizzy or lightheaded. OBJECTIVE: VITAL SIGNS: Temperature 37.0. Vital signs stable. GENERAL: Physical examination shows a healthy pleasant, middle-aged female. She is sitting up in her bed and talking to her family. She looks comfortable. LUNGS: Clear to auscultation. HEART: Regular rate and rhythm. ABDOMEN: Soft, nontender, nondistended. EXTREMITIES: Grossly neurovascularly intact except as follows: Examination of the right lower extremity reveals the leg to be well aligned. Dressing is clean, dry and intact. She is just starting to be able to wiggle her toes. She has got brisk refill. Good distal pulse. Still decreased sensation in the right leg. X-RAYS: X-rays of the right knee from recovery room reviewed. Shows cemented posterior stabilized total knee arthroplasty. Components looked to be in good position. No signs of problems. ASSESSMENT: A 58-year-old female postop from a right knee replacement, doing well. Pain is controlled. Her nerve function is just returning. PLAN: 1. DVT prophylaxis including thigh-high TEDs, SCDs, and aspirin twice a day. 2. PT/OT. Weight bear as tolerated. Right total knee protocol. 3. Pain control, doing well with current pain regimen. We will obviously have to increase her pain meds as the spinal wears off. 4. IV antibiotics x24 hours. 5. Disposition: She is planning to be discharged to home with some home health once adequately recovered.
[2018-12-05] MEDS: ACETAMINOPHEN 500 MG TAB PO SCH ×2 (14:03→21:01)
[2018-12-05] MEDS: OXYCODONE HCL IR 5 MG TAB (IMMEDIATE RELEASE) PO PRN ×2 (16:32→17:32)
[2018-12-05] MEDS: CHECK SCOPOLAMINE PATCH PLACEMENT SCH ×2 (16:33→23:24)
[2018-12-05] MEDS ORDERED: TRANEXAMIC ACID 1,000 MG in 0.9 % SODIUM CHLORIDE 100 ML IV SCH (17:00)
[2018-12-05] MEDS: SODIUM CHLORIDE 0.9% 1000ML 1,000 ML IV SCH (17:24)
[2018-12-05] MEDS: FERROUS GLUCONATE 324 MG TAB PO SCH (17:32)
[2018-12-05] MEDS: ASCORBIC ACID 500 MG TAB PO SCH (17:33)
[2018-12-05] MEDS: KETOROLAC 30 MG/ML VIAL IV SCH ×2 (18:38→23:24)
[2018-12-05] MEDS: CEFAZOLIN 2000MG 2,000 MG/15 ML SYR IV SCH (18:39)
[2018-12-05] MEDS: HYDROmorphone INJ 0.5 MG/0.5 ML SYR IV PRN (18:54)
[2018-12-05] MEDS: ASPIRIN 81 MG ECTAB PO SCH (21:00)
[2018-12-05] MEDS: DOCUSATE SODIUM 100 MG CAP PO SCH ×2 (21:00→21:03)
[2018-12-05] MEDS: TAPENTADOL HCL ER 50 MG TABCR PO SCH (21:00)
[2018-12-05] MEDS: SENNA 8.6 MG TAB PO SCH (21:00)
[2018-12-06] MEDS: CEFAZOLIN 2000MG 2,000 MG/15 ML SYR IV SCH (02:12)
[2018-12-06] MEDS: SODIUM CHLORIDE 0.9% 1000ML 1,000 ML IV SCH (03:49)
[2018-12-06] MEDS: KETOROLAC 30 MG/ML VIAL IV SCH ×4 (05:17→23:51)
[2018-12-06] MEDS: ACETAMINOPHEN 500 MG TAB PO SCH ×3 (05:17→20:49)
[2018-12-06 06:07] LABS: Hematocrit (blood only) 38.6 % (37-47); Hemoglobin 12.9 g/dL (12.0-16.0); Mean Corpuscular Hgb Conc 33.4 g/dL (32-36); Mean Corpuscular Volume 92.1 fL (80-100); Mean Platelet Volume 8.8 fL (7.4-10.4); Platelet Count 177 K/uL (130-400); RDW Coefficient of Variation 12.5 % (11.5-14.5); RDW Standard Deviation 42.4 fL (36.4-46.3); Red Blood Count 4.19 M/uL (4.2-5.4); White Blood Count 9.09 K/uL (4.8-10.8)
[2018-12-06 06:44] LABS: BUN Creatinine Ratio 17.9 (10-20); Calcium 8.8 mg/dl (8.5-10.1); Creatinine Clr Calc Pharmacy 87.3 ml/min; Est GFR (African American) 91.4; Est GFR (Non-African American) 78.9
[2018-12-06] MEDS: CHECK SCOPOLAMINE PATCH PLACEMENT SCH ×3 (07:33→23:52)
[2018-12-06] MEDS: ANASTROZOLE 1 MG TAB PO SCH (07:34)
[2018-12-06] MEDS: CETIRIZINE HCL 10 MG TABLET PO SCH (07:34)
[2018-12-06] MEDS: CHOLECALCIFEROL 1,000 UNITS TAB PO SCH (07:34)
[2018-12-06] MEDS: LISINOPRIL 5 MG TAB PO SCH (07:34)
[2018-12-06] MEDS: DOCUSATE SODIUM 100 MG CAP PO SCH ×2 (07:35→20:48)
[2018-12-06] MEDS: FERROUS GLUCONATE 324 MG TAB PO SCH ×2 (07:35→17:45)
[2018-12-06] MEDS: ASPIRIN 81 MG ECTAB PO SCH ×2 (07:35→20:49)
[2018-12-06] MEDS: MULTIVITAMIN TAB PO SCH (07:35)
[2018-12-06] MEDS: CALCIUM CARBONATE 1250MG TAB PO SCH (07:35)
[2018-12-06] MEDS: SERTRALINE HCL 100 MG TABLET PO SCH (07:35)
[2018-12-06] MEDS: ASCORBIC ACID 500 MG TAB PO SCH ×2 (07:35→17:45)
[2018-12-06] MEDS: TOCOPHERYL, DL-ALPHA 400 UNITS CAP PO SCH (07:36)
--- NOTE | 2018-12-06 08:05 | Anesthesiology Progress Note ---
Date of Service December 06, 2018 Anesthesia Post Procedure Vital Signs Vital Signs: Temp Pulse Pulse Resp BP BP Pulse Ox 12/06/18 07:44 37.1 C 59 L 18 129/80 94 12/06/18 03:42 36.9 C 57 L 18 119/72 95 12/05/18 23:36 37.0 C 63 18 102/63 94 12/05/18 19:13 36.5 C 59 L 16 107/68 95 12/05/18 15:25 36.6 C 68 16 115/72 92 12/05/18 14:15 71 18 114/72 92 12/05/18 13:28 75 18 106/69 92 12/05/18 12:50 73 18 115/64 95 12/05/18 12:20 37.0 C 75 16 118/73 93 12/05/18 12:15 78 12 93 12/05/18 12:11 82 19 120/61 94 12/05/18 12:10 91 H 23 94 12/05/18 12:06 74 13 113/61 93 12/05/18 12:05 76 15 93 12/05/18 12:04 36.9 C 75 16 113/61 94 12/05/18 12:01 74 12 110/59 L 93 12/05/18 12:00 72 13 93 12/05/18 11:57 77 11 L 92 12/05/18 11:56 72 16 116/62 93 12/05/18 11:55 79 10 L 94 12/05/18 11:51 75 13 119/73 94 12/05/18 11:50 78 17 95 12/05/18 11:46 75 12 115/63 95 12/05/18 11:45 73 16 94 12/05/18 11:41 74 12 119/69 95 12/05/18 11:40 68 13 95 12/05/18 11:36 73 16 119/69 98 12/05/18 11:35 67 15 98 12/05/18 11:31 66 14 127/63 97 12/05/18 11:30 78 18 98 12/05/18 11:26 63 12 113/61 97 12/05/18 11:25 65 13 97 12/05/18 11:22 60 12 98 12/05/18 11:21 71 12 127/68 98 04/02/19 11:20 64 12 100 12/05/18 11:17 64 14 100 12/05/18 11:16 60 11 L 121/65 99 12/05/18 11:15 56 L 15 100 12/05/18 11:11 59 L 12 127/69 99 12/05/18 11:10 68 13 99 12/05/18 11:06 63 11 L 128/60 99 12/05/18 11:05 58 L 12 99 12/05/18 11:01 71 20 131/63 98 12/05/18 11:00 62 11 L 100 12/05/18 10:56 64 14 129/61 100 12/05/18 10:55 66 12 100 12/05/18 10:51 73 18 120/79 99 12/05/18 10:50 74 15 99 12/05/18 10:48 37.1 C 76 79 14 124/59 L 124/79 99 Pain Intensity Right Knee: Pain Intensity: 4 Notes Mental Status: alert / awake / arousable and participated in evaluation Patient Amnestic to Procedure: Yes Nausea / Vomiting: adequately controlled Pain: adequately controlled Airway Patency, RR, SpO2: stable & adequate BP & HR: stable & adequate Hydration State: stable & adequate Neuraxial Anesthesia: was administered and sensory block resolved Anesthetic Complications: no major complications apparent
[2018-12-06] MEDS: OXYCODONE HCL IR 5 MG TAB (IMMEDIATE RELEASE) PO PRN ×2 (08:25→16:35)
[2018-12-06] MEDS: TAPENTADOL HCL ER 50 MG TABCR PO SCH ×2 (08:26→20:49)
[2018-12-06] MEDS ORDERED: MULTIVITAMIN TAB PO SCH (09:00)
[2018-12-06] MEDS: HYDROmorphone INJ 0.5 MG/0.5 ML SYR IV PRN (10:50)
--- NOTE | 2018-12-06 19:11 | Progress Note ---
DATE: 12/05/2018 SUBJECTIVE: A 58-year-old white female postop day 1 from right knee replacement. She is doing pretty well. Some pain, but controlled. No chest pain or shortness of breath. Not feeling dizzy or lightheaded. OBJECTIVE: VITAL SIGNS: Temperature 37.1. Vital signs stable. PHYSICAL EXAMINATION: GENERAL: Pleasant, middle-aged female. She is sitting up in bed and talking to her sister. She looks comfortable. EXTREMITIES: Examination of the right leg reveals the leg to be well aligned. She can dorsiflex and plantarflex her foot appropriately. She is neurologically intact. LABORATORY DATA: Hemoglobin is 12.9, hematocrit 38.6. Electrolytes are stable. ASSESSMENT: 58-year-old white female postop day 1 from right knee replacement, doing pretty well. Pain is reasonably well controlled. She is neurologically intact. PLAN: 1. DVT prophylaxis including thigh TEDs, SCDs, and aspirin twice a day. 2. PT/OT. Weight bear as tolerated. Right total knee protocol. 3. Pain control, doing pretty well with current pain regimen. 4. Disposition: She is planning to be discharged to home with some home health once adequately recovered.
[2018-12-06] MEDS: SENNA 8.6 MG TAB PO SCH (20:48)
[2018-12-07] MEDS: ACETAMINOPHEN 500 MG TAB PO SCH ×2 (05:48→12:57)
[2018-12-07] MEDS: KETOROLAC 30 MG/ML VIAL IV SCH ×2 (05:48→11:07)
[2018-12-07] MEDS: CHECK SCOPOLAMINE PATCH PLACEMENT SCH (07:40)
[2018-12-07] MEDS: SERTRALINE HCL 100 MG TABLET PO SCH (07:41)
[2018-12-07] MEDS: FERROUS GLUCONATE 324 MG TAB PO SCH (07:41)
[2018-12-07] MEDS: MULTIVITAMIN TAB PO SCH (07:41)
[2018-12-07] MEDS: LISINOPRIL 5 MG TAB PO SCH (07:41)
[2018-12-07] MEDS: CHOLECALCIFEROL 1,000 UNITS TAB PO SCH (07:41)
[2018-12-07] MEDS: DOCUSATE SODIUM 100 MG CAP PO SCH (07:41)
[2018-12-07] MEDS: TOCOPHERYL, DL-ALPHA 400 UNITS CAP PO SCH (07:42)
[2018-12-07] MEDS: ASCORBIC ACID 500 MG TAB PO SCH (07:42)
[2018-12-07] MEDS: CALCIUM CARBONATE 1250MG TAB PO SCH (07:42)
[2018-12-07] MEDS: ASPIRIN 81 MG ECTAB PO SCH (07:42)
[2018-12-07] MEDS: CETIRIZINE HCL 10 MG TABLET PO SCH (07:42)
[2018-12-07] MEDS: ANASTROZOLE 1 MG TAB PO SCH (07:42)
--- NOTE | 2018-12-07 07:45 | Progress Note ---
DATE: 12/07/2018 SUBJECTIVE: A 58-year-old white female postop day 2 from right knee replacement. She is doing pretty well. A bit more painful this morning, but got some pain medicine, doing better. No chest pain or shortness of breath. Not feeling dizzy or lightheaded. She has been getting around reasonably well. OBJECTIVE: VITAL SIGNS: Temperature 36.9. Vital signs stable. GENERAL: Physical examination reveals a pleasant, middle-aged female. She is lying in bed, looks reasonably comfortable. She is talking to her this morning. EXTREMITIES: Examination of the right leg reveals the dressing to be clean, dry and intact. Her calf is soft and supple. She can dorsiflex and plantarflex her foot appropriately. She is neurologically intact. ASSESSMENT: A 58-year-old white female postop day 2 from a right knee replacement, doing pretty well. Pain is reasonably well controlled. PLAN: 1. DVT prophylaxis including thigh-high TEDs, SCDs, and aspirin twice a day. 2. PT/OT. Weight bear as tolerated. Right total knee protocol. 3. Pain control, doing pretty well with current pain regimen. 4. Disposition: Plan to discharge to home with some home health later today.
[2018-12-07] MEDS: TAPENTADOL HCL ER 50 MG TABCR PO SCH (08:32)
[2018-12-07] MEDS: OXYCODONE HCL IR 5 MG TAB (IMMEDIATE RELEASE) PO PRN ×2 (08:32→12:57)
--- NOTE | 2018-12-11 16:28 | Discharge Summary ---
ADMITTING PHYSICIAN AND SURGEON: Dr. Tavo Perales. ADMITTING DIAGNOSIS: Right knee degenerative joint disease. SURGERY PERFORMED: Right total knee arthroplasty. SECONDARY DIAGNOSES: Hypertension, anxiety, depression, arthritis, gastroesophageal reflux disease, obesity. CONSULTS: None obtained. HISTORY AND PHYSICAL EXAMINATION: Well documented in the patient's chart. HOSPITAL COURSE: The patient was admitted on 12/05/2018 underwent total knee arthroplasty, tolerated the procedure well. There were no complications. She was transferred to the PACU postoperatively and later to the orthopedic floor for further care. She was given Ancef for antibiotic prophylaxis, JOEL stockings, SCDs and aspirin for DVT prophylaxis. Hemoglobin, hematocrit and vital signs were monitored and remained stable. She did not require any blood transfusions. There were no complications. By postoperative day 2, she was tolerating a regular diet, pain was controlled with oral pain medicine. She was participating in physical therapy. Postop day 2, she was discharged home, set up with home health services. She was given printed discharge instructions including the prescriptions for extra strength Tylenol, aspirin, oxycodone. Continue her home medicines with the exception of her home dose of aspirin which was changed. Continue physical therapy, weightbearing as tolerated, JOEL stockings. Follow up approximately 2 weeks postoperatively or sooner if any problems or concerns.
== END 2018-12-07 13:12 | disposition home health service (06) | DRG 470 ==
LOC: ASU 06:15 → 3E 10:48

== ENCOUNTER 2019-02-06 06:30 | Inpatient (IN) ==
--- NOTE | 2019-01-22 12:31 | Anesthesiology Consultation ---
Date of Service January 22, 2019 Assessment & Plan (1) Encounter for pre-operative examination: Chart Review Chart Review: Acceptable Risk for Surgery and Patient NOT seen in Pre Admission Testing Consults Requested none History Surgery Operation Date: 02/06/19 12:30 Proposed Procedures p Left Total Knee Replacement - Tavo Perales MD Height/Weight Height: 5 ft 5 in Weight: 96.615 kg Allergies Allergy/AdvReac Type Severity Reaction Status Date / Time cat dander Allergy Mild ITCHY NOSE Verified 01/18/19 10:06 RUNNY EYES pollen extracts Allergy Mild ITCHY EYES Verified 01/18/19 10:06 RUNNY NOSE No Known Drug Allergies Allergy Unknown Verified 01/18/19 10:06 Medications Home Medications Medication Instructions Recorded Confirmed Last Taken Vitamin D 1 tab PO DAILY 11/10/18 01/18/19 12/04/18 07:00 anastrozole 1 mg PO 11/10/18 01/18/19 12/04/18 10:00 calcium carbonate [Calcium 600] 600 mg PO DAILY 11/10/18 01/18/19 12/04/18 07:00 cetirizine [Zyrtec] 10 mg PO DAILY 11/10/18 01/18/19 12/04/18 07:00 clonazepam 0.5 mg PO BID PRN 11/10/18 01/18/19 12/05/18 05:30 cyclobenzaprine 10 mg PO TID PRN 11/10/18 01/18/19 Unknown diclofenac sodium 75 mg PO BID 11/10/18 01/18/19 Unknown glucosamine HCl 1,500 mg PO DAILY 11/10/18 01/18/19 Unknown lisinopril 5 mg PO 11/10/18 01/18/19 12/04/18 10:00 multivitamin 1 tab PO QAM 11/10/18 01/18/19 Unknown ranitidine HCl [Zantac] 150 mg PO QAM 11/10/18 01/18/19 12/04/18 07:00 sertraline 100 mg PO 11/10/18 01/18/19 12/04/18 10:00 vitamin E 400 unit PO DAILY 11/10/18 01/18/19 Unknown aspirin [Ecotrin Low Strength] 81 mg PO QAM 01/18/19 01/18/19 Unknown Past Medical History Medical History Anxiety Cancer BREAST S/P LEFT BREAST LUMPECTOMY/RADIATION Depression GERD (gastroesophageal reflux disease) CONTROLLED Hypertension Obesity Osteoarthritis Past Family History Family History Grandfather (Maternal) Family hx of colon cancer Past Surgical History Surgical History History of bilateral tubal ligation History of colonoscopy History of tooth extraction History of total knee replacement 12/05/18 - right TKA, SAB on first attempt (3cc 0.5% bupi), sedation 4 mg midaz, 100 mcg fent, 35 mcg/kg propofol Hx of lumpectomy LEFT BREAST Social History Smoking Status: Never smoker Do You Dip or Chew Tobacco: No Hx Alcohol Use: Yes Alcohol type: wine and hard liquor alcohol intake frequency: holidays/special occasions only Hx Substance Use: No substance use type: does not use Testing Laboratory Results Laboratory Tests 01/15/19 01/15/19 01/15/19 08:43 08:43 08:43 WBC 5.53 Hgb 13.9 Hct 40.4 Plt Count 221 PT 10.0 INR 1.0 APTT 23.9 Sodium 140 Potassium 4.0 Chloride 108 H Carbon Dioxide 22 BUN 18 Creatinine 0.82 Glucose 125 H Electrocardiogram Date: 11/16/18 Findings: + NSR @ (70) Chest X-Ray Date: 11/16/18 Findings: + NAD
--- NOTE | 2019-02-01 22:19 | History and Physical Report ---
DATE OF ADMISSION: 02/06/2019 CHIEF COMPLAINT: Left knee pain. 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 She has got a long history of bilateral knee pain and discomfort and underwent a right knee replacement just about 2 months ago. She has done remarkably well with this. Still having a little bit nighttime pain but more bothered by her left knee. She has got a long history of left knee pain and discomfort treated by my partner Dr. Leavitt with injections. This became less successful over time. 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 She has trouble walking by the end of the day. NSAIDs provide minimal relief. She would like to have surgical treatment of her left knee. Very happy with the right knee. PAST MEDICAL HISTORY: 1. Hypertension. 2. Anxiety/depression. 3. Arthritis. 4. Gastroesophageal reflux disease. 5. Obesity with BMI 35.5. PAST SURGICAL HISTORY: 1. Tubal ligation. 2. Lumpectomy. 3. Right knee replaced on 12/05/2018. ALLERGIES: None. CURRENT MEDICINES: 1. Lisinopril 5 mg daily. 2. Anastrozole 1 mg. 3. Diclofenac twice. 4. Sertraline 100 mg a day. 5. Clonazepam 0.5 mg. 6. Cyclobenzaprine 10 mg as needed. SOCIAL HISTORY: A 58-year-old female. Works as a nurse in the [employer]. She is . Does not smoke. Social alcohol intake. FAMILY HISTORY: Noncontributory. REVIEW OF HISTORY: Negative for diabetes, neurologic problems, vascular problems or bleeding disorders. No chest pain or shortness of breath. No history of DVT or PE. No known bleeding problems. PHYSICAL EXAMINATION: GENERAL: Reveals a healthy, pleasant middle-aged female. Looks to be in pretty good health. HEENT: Benign. NECK: Supple, no lymphadenopathy. LUNGS: Clear to auscultation. HEART: Regular rate and rhythm. ABDOMEN: Soft, nontender, nondistended. EXTREMITIES: Grossly neurovascularly intact except as follows: Examination of the left knee reveals patient walks with a slightly antalgic gait. She has varus alignment to her knee. She is tender over the medial joint line. Small knee effusion. Range of motion is 5 to 125. No instability. No pain with hip motion. She is neurologically intact. Examination of right knee reveals well-healed incision. Good straight leg raise. Range of motion 0-120. No instability. X-rays of the left knee reviewed. Shows advanced medial compartment DJD. She has complete loss of her medial joint space. Some small osteophytes off the medial femoral condyle and medial tibial plateau. She has subchondral sclerosis. ASSESSMENT: A 58-year-old white female 2 months out from right knee replacement with advanced left knee degenerative joint disease. She has failed conservative treatment and would like to have her left knee replaced. PLAN: We will take her to the Operating Room and do a left total knee replacement. The risks and benefits of this procedure were explained to the patient including but not limited to DVT, PE, , infection, neurological injury, vascular injury, bleeding problem, pain, limited range of motion, stiffness, failure to relieve symptoms, incomplete relief of symptoms, need for further surgery in the future, fracture, leg length inequality, nerve palsy, etc. The patient understands and desires to proceed. Informed consent obtained. She has mostly rough course after her right knee replacement. I will write her for some p.o. Toradol and discharged along with the oxycodone. ALFRED
[~2019-02-06 06:30] MED LIST changes: +BUPIVACAINE 0.5 % 5 MG/1 ML PF 10ML VIAL ONE; +ROPIVACAINE 0.5% 5 MG/ML 30 ML VIAL ONE; +TRANEXAMIC ACID 1,000 MG **IV Intra-op IV SCH
--- NOTE | 2019-02-06 06:48 | History & Physical Bridge Note ---
Date of Service February 06, 2019 History & Physical Bridge Note I have examined the patient, reviewed the History & Physical and in the interval since the performance of the History & Physical I have noted the following changes of clinical significance: no changes noted
[2019-02-06] MEDS ORDERED: MIDAZOLAM HCL 1 MG/ML 2ML VIAL ONE ×2 (07:27→08:55)
[2019-02-06] MEDS ORDERED: fentaNYL citrate 100 MCG/2 ML VIAL ONE (07:27)
[2019-02-06] MEDS ORDERED: BUPIVACAINE LIPOSOME 1.3% 266 MG/20 ML VIAL ONE (08:14)
[2019-02-06] MEDS ORDERED: BACITRACIN INJ 50,000 UNIT VIAL ONE (08:14)
[2019-02-06] MEDS ORDERED: BUPIVACAINE 0.25% 30 ML VIAL ONE (08:14)
[2019-02-06] MEDS ORDERED: SODIUM CHLORIDE 0.9% PF 50 ML VIAL ONE (08:14)
[2019-02-06] MEDS ORDERED: EPINEPHrine INJ 1 MG/ML AMP ONE (08:14)
[2019-02-06] MEDS ORDERED: ePHEDrine sulfate 50 MG/ML AMP IV PRN (08:20)
[2019-02-06] MEDS ORDERED: ONDANSETRON INJ 2 MG/ML 2 ML VIAL IV PRN ×2 (08:20→11:08)
[2019-02-06] MEDS ORDERED: ATROPINE SULFATE 0.1 MG/ML 10ML SYR IV PRN (08:20)
[2019-02-06] MEDS ORDERED: fentaNYL citrate 100 MCG/2 ML VIAL IV PRN (08:20)
[2019-02-06] MEDS ORDERED: LIDOCAINE HCL 2% 2 ML VIAL/AMP(20MG/ML) INFIL ONE (08:57)
[2019-02-06] MEDS ORDERED: PROPOFOL IV EMULSION 10 MG/ML 20 ML VIAL IV ONE ×3 (08:57→10:27)
--- NOTE | 2019-02-06 10:17 | Post Operative Brief Note ---
Immediate Post Op Note v1 Date of Surgery February 06, 2019 Pre & Post Diagnosis Operation Date: 02/06/19 08:50 Pre-Op Diagnosis: Left Knee Advanced Degenerative Joint Disease Post-Op Diagnosis: Left Knee Advanced Degenerative Joint Disease Procedure Operation Date: 02/06/19 08:50 Actual Procedures p Left Total Knee Arthroplasty(Left) - Tavo Perales MD Surgeon Tavo Perales MD Shrimp Cleaner Char, PAC Estimated Blood Loss 50 Findings Consistent with Post-Op Diagnosis Fluids 2000 cc Specimens Left Knee Drains Godinez Catheter (A 16 Romanian godinez catheter was inserted by RANDEE Guadarrama, without difficulty, clear yellow urine obtained, output to be monitored by Anesthesia.) Anesthesia Type Spinal MAC Complications none Disposition Accompanied Patient To Recovery: No Disposition: Recovery Room
[2019-02-06] MEDS ORDERED: ONDANSETRON INJ 2 MG/ML 2 ML VIAL ONE (10:27)
--- NOTE | 2019-02-06 10:43 | Anesthesiology Progress Note ---
Date of Service February 06, 2019 Anesthesia Post Procedure Vital Signs Vital Signs: Temp Pulse Resp BP Pulse Ox 02/06/19 10:40 61 14 120/62 100 02/06/19 10:30 58 L 16 120/64 100 02/06/19 10:23 97.5 F L 71 16 120/66 100 02/06/19 07:01 98.2 F 80 16 141/91 H 95 Transfer of Care Handoff Completed per policy Notes Mental Status: alert / awake / arousable and participated in evaluation Patient Amnestic to Procedure: Yes Nausea / Vomiting: adequately controlled Pain: adequately controlled Airway Patency, RR, SpO2: stable & adequate BP & HR: stable & adequate Hydration State: stable & adequate Neuraxial Anesthesia: was administered and sensory block is resolving Anesthetic Complications: no major complications apparent and Pt Satisfied with anesthetic care
--- NOTE | 2019-02-06 10:51 | XRay Report ---
TWO VIEWS LEFT KNEE CLINICAL HISTORY: Postoperative examination. FINDINGS: AP and crosstable lateral portable views of the left knee are obtained. A left knee arthrop lasty is in near anatomic alignment. There has been undersurface remodeling of the patella. No acute fracture is seen. There are expected postoperative changes around the knee including skin clips, soft tissue edema, and subcutaneous gas. IMPRESSION: Expected postoperative changes status post left knee arthroplasty. No acute fracture is s een. Electronically signed by: Luan Saavedra M.D. 02/06/2019 10:50 AM
[2019-02-06] MEDS ORDERED: clonazePAM 0.5 MG TAB PO PRN (11:08)
[2019-02-06] MEDS ORDERED: METOCLOPRAMIDE HCL INJ 5 MG/ML 2 ML VIAL IV PRN (11:08)
[2019-02-06] MEDS ORDERED: CYCLOBENZAPRINE HCL 10 MG TAB PO PRN (11:08)
[2019-02-06] MEDS ORDERED: ALUMINUM/MAGNESIUM SUSP 30 ML UDC PO PRN (11:08)
[2019-02-06] MEDS ORDERED: NALOXONE HCL 0.4 MG/1 ML VIAL/CARP IV PRN (11:08)
[2019-02-06] MEDS ORDERED: BISACODYL 10 MG SUPP PR PRN (11:08)
[2019-02-06] MEDS ORDERED: MAGNESIUM HYDROXIDE SUSP 30 ML UDC PO PRN (11:08)
[2019-02-06] MEDS: CHECK SCOPOLAMINE PATCH PLACEMENT SCH ×2 (12:12→15:20)
[2019-02-06] MEDS: KETOROLAC 30 MG/ML VIAL IV SCH ×2 (12:13→18:17)
[2019-02-06] MEDS: SODIUM CHLORIDE 0.9% 1000ML 1,000 ML IV SCH (13:15)
[2019-02-06] MEDS: ACETAMINOPHEN 500 MG TAB PO SCH ×2 (14:18→21:16)
--- NOTE | 2019-02-06 16:19 | Progress Note ---
DATE: 02/06/2019 SUBJECTIVE: A 58-year-old white female postop from a left knee replacement. She is doing pretty well. Not had any pain yet. No chest pain or shortness of breath. Not feeling dizzy or lightheaded. OBJECTIVE: VITAL SIGNS: Temperature is 36.4. Vital signs stable. GENERAL: Physical examination reveals a healthy, pleasant middle-aged female. She is sitting up in bed and looks quite comfortable. She is talking to her . LUNGS: Clear to auscultation. HEART: Regular rate and rhythm. ABDOMEN: Soft, nontender, nondistended. EXTREMITIES: Grossly neurovascularly intact except as follows: Examination of the left lower extremity reveals the leg to be well aligned. Dressing is clean, dry and intact. She can dorsiflex and plantarflex her foot appropriately. She is neurologically intact. She has got a good distal pulse. IMAGING: X-rays of the left knee from recovery room were not able to review. The report is consistent with postoperative findings of a knee replacement. The images are not available to view for unclear reasons. ASSESSMENT: A 58-year-old female postop from a left knee replacement, doing well. Pain is controlled. She is neurologically intact. PLAN: 1. DVT prophylaxis including thigh-high TEDs, SCDs, and aspirin twice a day. 2. PT/OT. Weight bear as tolerated. Left total knee protocol. 3. Pain control, doing well with current pain regimen. We will plan on using Tylenol, Toradol and oxycodone for pain control. 4. IV antibiotics x24 hours. 5. Disposition: Plan to discharge to home with some home health once adequately recovered.
[2019-02-06] MEDS ORDERED: TRANEXAMIC ACID 1,000 MG in 0.9 % SODIUM CHLORIDE 100 ML IV SCH (16:30)
[2019-02-06] MEDS: OXYCODONE HCL IR 5 MG TAB (IMMEDIATE RELEASE) PO PRN ×2 (17:13→21:54)
[2019-02-06] MEDS: ASCORBIC ACID 500 MG TAB PO SCH (17:13)
[2019-02-06] MEDS: FERROUS GLUCONATE 324 MG TAB PO SCH (17:13)
[2019-02-06] MEDS: CEFAZOLIN 2000MG 2,000 MG/15 ML SYR IV SCH (17:15)
[2019-02-06] MEDS: DOCUSATE SODIUM 100 MG CAP PO SCH (20:20)
[2019-02-06] MEDS: SERTRALINE HCL 100 MG TABLET PO SCH (20:20)
[2019-02-06] MEDS: ANASTROZOLE 1 MG TAB PO SCH (20:20)
[2019-02-06] MEDS: ASPIRIN 81 MG ECTAB PO SCH (20:20)
[2019-02-06] MEDS: LISINOPRIL 5 MG TAB PO SCH (20:20)
[2019-02-06] MEDS: TAPENTADOL HCL ER 50 MG TABCR PO SCH (20:20)
[2019-02-06] MEDS: SENNA 8.6 MG TAB PO SCH (20:21)
[2019-02-07] MEDS: SODIUM CHLORIDE 0.9% 1000ML 1,000 ML IV SCH (00:02)
[2019-02-07] MEDS: CHECK SCOPOLAMINE PATCH PLACEMENT SCH (00:02)
[2019-02-07] MEDS: KETOROLAC 30 MG/ML VIAL IV SCH ×4 (00:03→17:56)
[2019-02-07] MEDS: CEFAZOLIN 2000MG 2,000 MG/15 ML SYR IV SCH (01:26)
--- NOTE | 2019-02-07 02:28 | Operative Report ---
DATE OF OPERATION: 02/06/2019 DATE OF PROCEDURE: 02/06/2019 SURGEON: Tavo Perales MD VALVE FITTER: RANDEE Hutchins PREOPERATIVE DIAGNOSIS: Left knee degenerative joint disease. POSTOPERATIVE DIAGNOSIS: Left knee degenerative joint disease. PROCEDURE PERFORMED: Left cemented posterior stabilized total knee arthroplasty. COMPLICATIONS: None. ESTIMATED BLOOD LOSS: 50 mL. FLUID REPLACEMENT: 2000 mL crystalloid fluid replacement. ANESTHESIA: Spinal with adductor canal block. DRAINS: None. SPECIMENS: Left knee sent for pathology. TOURNIQUET TIME: 52 minutes at 300 mmHg. 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 She has been through extensive conservative treatment provided by my partner Dr. Leavitt over the years. Pain has become more unresponsive to conservative care. It was affecting her ability to even do her job. She underwent a right knee replacement 2 months ago and did well from this and would like to proceed with left knee replacement. OPERATIVE FINDINGS: Operative findings revealed advanced left knee DJD. She had extensive grade 4 changes in the medial compartment with focal changes of the trochlea particularly in the medial facet as well as focal changes in the lateral compartment. She has moderate size joint effusion. OPERATIVE IMPLANTS: Operative implants consisted of: 1. Biomet Vanguard size 62.5 left posterior stabilized femoral component. 2. Biomet size 67 tibial tray. 3. A 12 mm posterior stabilized polyethylene insert. 4. A 28 x 8 all poly patella. OPERATIVE PROCEDURE: The patient taken to the operating room, identified, and placed on the operating table in the supine position. All contact areas were appropriately padded. IV antibiotics were provided by anesthesia team. Spinal anesthetic and adductor canal block had been provided in the holding area. Salazar catheter was placed in sterile fashion. A left thigh tourniquet was then placed and left lower extremity was then prepped and draped in usual sterile fashion. The left leg was then elevated and exsanguinated with Esmarch and tourniquet was placed at 300 mmHg. An anterior approach of left knee was then performed through longitudinal incisions centered over the patella. Sharp dissection was carried through subcutaneous tissues down to the level of the extensor mechanism. Medial parapatellar arthrotomy incision was made. Some subperiosteal dissection was carried out medially. The fat pad resected from beneath the patellar tendon. The lateral patellofemoral ligament was released. The patella was everted and the knee was flexed. The osteophytes were taken off the distal femur. The ACL and PCL were then released from the distal femur and the tibia subluxated anteriorly. External tibial alignment jig was then placed in the anterior face of the tibia and adjusted 14 mm medially. Proximal tibia cut was made to remove a millimeter or 2 of bone from most deficient aspect of the medial tibial plateau. Some osteophytes were taken off medial and posteromedially. Tibia sized to a size 67. Attention was then drawn to the femur. The distal femur was entered with a sharp drill bit. Intramedullary canal was suctioned. A left 5-degree valgus cutting guide was placed. Distal femoral cutting block was pinned in place. Distal femoral cut was made to take an additional 3 mm of bone off the distal femur. The femur was then sized to a size 62.5. We downsized this slightly. The AP cutting block was pinned parallel to the epicondylar axis, which was 6 degrees of external rotation. The anterior cut, anterior chamfer, posterior cut, posterior chamfer cuts were made. Box cutting guide was placed and adjusted slightly lateral and box cut was made. The knee was flexed. The remnants of the medial and lateral menisci were excised. The osteophytes were taken off the posterior aspect of the femur. Trial femoral component was placed. The tibial tray was pinned in maximum external rotation and the drill and stem punch were used to create defect in proximal tibia for the tibial tray. The knee was then trialed and the 12 mm insert fit most appropriately. Attention was then drawn to the patella. The patella was cleaned of all soft tissues. Patella thickness measured 18 mm in thickness, was cut down to 12. It was sized to a size 28 patella. Lug holes were drilled for a 28 patella. The lateral osteophyte was removed. Patella button was placed. Knee was taken through range of motion and patella tracked nicely with no thumbs test. Attention was then drawn toward placement of permanent components. All trial components were removed. Bone plug was placed in the distal femur to limit blood loss. A double batch of Palacos G cement was mixed. A Biomet Vanguard size 62.5 left posterior stabilized femoral component, size 67 tibial tray, a 12 mm posterior stabilized polyethylene insert, and a 28 x 8 all poly patella then cemented in place. Knee was brought out into full extension until cement hardened. A final cement check was then performed. Pericapsular tissues were injected with a total of 100 mL of combination of 20 mL of Exparel, 30 mL of normal saline, 50 mL of 0.25% Marcaine with epinephrine. The patient did receive 1 gram of tranexamic acid. An attempt was then let down for final tourniquet time of 55 minutes. Hemostasis was assured using electrocautery. The extensor mechanism was then closed with combination of #1 PDS suture and #1 Vicryl suture in a buried interrupted fashion. Extensor mechanism was checked and found to be intact. Subcutaneous tissues were then closed with 2-0 Dexon suture in a buried interrupted fashion. Skin was closed with skin adia. Leg was then cleaned, dried and a sterile dressing of Xeroform, 4 x 4's, sterile cast padding and Jacky bandage were applied. The patient then transferred to the recovery room in stable condition. The patient tolerated the procedure well with no complications. All needle and sponge counts were correct at the end of the operation. I attest to the content of the Intraoperative Record and any orders documented therein. Any exception s are noted below.
[2019-02-07] MEDS: ACETAMINOPHEN 500 MG TAB PO SCH ×3 (06:00→21:27)
[2019-02-07] MEDS: OXYCODONE HCL IR 5 MG TAB (IMMEDIATE RELEASE) PO PRN ×2 (06:08→13:28)
[2019-02-07 06:30] LABS: Hematocrit (blood only) 36.4 % (37-47); Hemoglobin 12.1 g/dL (12.0-16.0); Mean Corpuscular Hgb Conc 33.2 g/dL (32-36); Mean Corpuscular Volume 90.5 fL (80-100); Mean Platelet Volume 8.9 fL (7.4-10.4); Platelet Count 165 K/uL (130-400); RDW Coefficient of Variation 12.8 % (11.5-14.5); RDW Standard Deviation 42.7 fL (36.4-46.3); Red Blood Count 4.02 M/uL (4.2-5.4)
[2019-02-07 07:02] LABS: BUN Creatinine Ratio 19.9 (10-20); Calcium 8.9 mg/dl (8.5-10.1); Creatinine Clr Calc Pharmacy 88.4 ml/min; Est GFR (African American) 92.8; Est GFR (Non-African American) 80.1; Potassium 3.9 mmol/L (3.5-5.1)
[2019-02-07] MEDS: HYDROmorphone INJ 0.5 MG/0.5 ML SYR IV PRN ×2 (08:01→15:08)
[2019-02-07] MEDS ORDERED: MULTIVITAMIN TAB PO SCH (09:00)
[2019-02-07] MEDS: DOCUSATE SODIUM 100 MG CAP PO SCH ×2 (09:06→20:43)
[2019-02-07] MEDS: TAPENTADOL HCL ER 50 MG TABCR PO SCH ×2 (09:06→20:43)
[2019-02-07] MEDS: ASPIRIN 81 MG ECTAB PO SCH ×2 (09:06→20:43)
[2019-02-07] MEDS: TOCOPHERYL, DL-ALPHA 400 UNITS CAP PO SCH (09:06)
[2019-02-07] MEDS: CETIRIZINE HCL 10 MG TABLET PO SCH (09:06)
[2019-02-07] MEDS: CHOLECALCIFEROL 1,000 UNITS TAB PO SCH (09:06)
[2019-02-07] MEDS: CALCIUM CARBONATE 1250MG TAB PO SCH (09:07)
[2019-02-07] MEDS: MULTIVITAMIN TAB PO SCH (09:07)
[2019-02-07] MEDS: ASCORBIC ACID 500 MG TAB PO SCH ×2 (09:07→17:56)
[2019-02-07] MEDS: FERROUS GLUCONATE 324 MG TAB PO SCH ×2 (09:07→17:56)
--- NOTE | 2019-02-07 10:00 | Progress Note ---
DATE: 02/07/2019 SUBJECTIVE: A 58-year-old white female postop day 1 from a left knee replacement. She is doing pretty well. There was quite a little bit of IV Dilaudid for pain control but doing better now. No chest pain or shortness of breath. Not feeling dizzy or lightheaded. OBJECTIVE: VITAL SIGNS: Temperature 37.1. Vital signs stable. GENERAL: Reveals a pleasant, middle-aged female. She is sitting up at her bedside dangling her legs over the edge of the bed and looks pretty comfortable. EXTREMITIES: Examination of the left leg reveals the dressing to be clean, dry, and intact. She can dorsiflex and plantarflex her foot appropriately. She can do a straight leg raise. She is neurologically intact. LABORATORY DATA: Hemoglobin 12.1. Hematocrit 36.4. Electrolytes are stable. ASSESSMENT: A 58-year-old white female postop day 1 from left knee replacement, doing reasonably well. Pain is controlled. She is neurologically intact. PLAN: 1. DVT prophylaxis including thigh-high TEDs, SCDs, and aspirin twice a day. 2. PT/OT. Weight bear as tolerated. Left total knee protocol. 3. Pain control, doing pretty well with current pain regimen. We will continue the Tylenol, Toradol, and oxycodone as needed. 4. Disposition: She is planning to be discharged to home with some home health once adequately recovered and pain controlled and get around safely.
[2019-02-07] MEDS: SENNA 8.6 MG TAB PO SCH (20:43)
[2019-02-07] MEDS: SERTRALINE HCL 100 MG TABLET PO SCH (20:43)
[2019-02-07] MEDS: LISINOPRIL 5 MG TAB PO SCH (20:43)
[2019-02-07] MEDS: ANASTROZOLE 1 MG TAB PO SCH (20:43)
[2019-02-08] MEDS: KETOROLAC 30 MG/ML VIAL IV SCH ×2 (00:30→05:59)
[2019-02-08] MEDS: OXYCODONE HCL IR 5 MG TAB (IMMEDIATE RELEASE) PO PRN ×2 (00:38→07:29)
[2019-02-08] MEDS: ACETAMINOPHEN 500 MG TAB PO SCH (05:59)
--- NOTE | 2019-02-08 08:01 | Progress Note ---
DATE: 02/08/2019 SUBJECTIVE: A 58-year-old female postop day 2 from a left knee replacement. She is doing pretty well. Pain is reasonably well controlled. No chest pain or shortness of breath. OBJECTIVE: VITAL SIGNS: Temperature 36.9. Vital signs stable. GENERAL: Physical examination shows a pleasant, middle-aged female. She is sitting up in bed, looks pretty comfortable. She is doing some leg lifts this morning. EXTREMITIES: Examination of the left lower extremity reveals the dressing to be clean, dry and intact. Leg is well aligned. Calf is soft and supple. She can do a pretty good straight leg raise. She can dorsiflex and plantarflex her foot appropriately. ASSESSMENT: A 58-year-old white female postop day 2 from a left knee replacement, doing well. Pain is controlled. She is neurologically intact. PLAN: 1. DVT prophylaxis including thigh-high TEDs, SCDs, and aspirin twice a day. 2. PT/OT. Weight bear as tolerated. Left total knee protocol. 3. Pain control, doing pretty well with current pain regimen. We are going to send her home on Tylenol, Toradol, and oxycodone. 4. Disposition: Plan to discharge to home with some home health later today.
[2019-02-08] MEDS: ASPIRIN 81 MG ECTAB PO SCH (08:30)
[2019-02-08] MEDS: MULTIVITAMIN TAB PO SCH (08:31)
[2019-02-08] MEDS: CALCIUM CARBONATE 1250MG TAB PO SCH (08:31)
[2019-02-08] MEDS: CETIRIZINE HCL 10 MG TABLET PO SCH (08:31)
[2019-02-08] MEDS: TOCOPHERYL, DL-ALPHA 400 UNITS CAP PO SCH (08:31)
[2019-02-08] MEDS: DOCUSATE SODIUM 100 MG CAP PO SCH (08:31)
[2019-02-08] MEDS: ASCORBIC ACID 500 MG TAB PO SCH (08:31)
[2019-02-08] MEDS: FERROUS GLUCONATE 324 MG TAB PO SCH (08:31)
[2019-02-08] MEDS: CHOLECALCIFEROL 1,000 UNITS TAB PO SCH (08:31)
[2019-02-08] MEDS: TAPENTADOL HCL ER 50 MG TABCR PO SCH (08:33)
[2019-02-08] MEDS: HYDROmorphone INJ 0.5 MG/0.5 ML SYR IV PRN (10:54)
--- NOTE | 2019-02-14 07:25 | Discharge Summary ---
ADMITTING PHYSICIAN AND SURGEON: Tavo Perales MD ADMITTING DIAGNOSIS: Left knee degenerative joint disease. SURGERY PERFORMED: Left total knee arthroplasty. SECONDARY DIAGNOSES: Hypertension, anxiety, depression, arthritis, gastroesophageal reflux disease, obesity. CONSULTS: None obtained. HISTORY AND PHYSICAL EXAMINATION: Well documented in the patient's chart. HOSPITAL COURSE: The patient was admitted on 02/06/2019, underwent total knee arthroplasty, tolerated the procedure well. There were no complications. She was transferred to the PACU postoperatively and later to the orthopedic floor for further care. She was given Ancef for antibiotic prophylaxis, JOEL stockings, SCDs and aspirin for DVT prophylaxis. Hemoglobin, hematocrit and vital signs were monitored during her hospital stay and remained stable. She did not require any blood transfusions. There were no complications. By postoperative day 2, she was tolerating a regular diet, pain was controlled with oral pain medicine. She was participating in physical therapy. On postop day 2, she was discharged home, set up with home health services. She was given printed discharge instructions as well as new prescriptions for extra-strength Tylenol, aspirin, and oxycodone. Continue her home medications with the exception of aspirin and diclofenac, which she was told to stop. Continue physical therapy, weightbearing as tolerated, JOEL stockings. Follow up approximately 2 weeks postop or sooner if there are any problems or concerns.
== END 2019-02-08 12:11 | disposition home health service (06) | DRG 470 ==
LOC: ASU 06:30 → 3E 10:21